=== PATIENT | female | born 1960 | race Caucasian/White ===

== ENCOUNTER 2020-08-21 11:29 | Emergency (ER) | payer MEDICARE, MEDICAID, SELFPAY ==
[2020-08-21 12:00] VITALS: BP 114/69; PULSE 72; RESP 16; TEMP 36.6; O2SAT 96; BMI 38.7
--- NOTE | 2020-08-21 13:24 | XR_ITS ---
EXAMINATION: XR SHOULDER, RIGHT CLINICAL INFORMATION: Right shoulder pain. COMPARISON: Right shoulder radiographs dated 08/14/2019. TECHNIQUE: Two views of the right shoulder. FINDINGS: Rotator cuff anchors are again seen overlying the right humeral head and scapula without significant change. There is no acute fracture dislocation. The joint spaces are unremarkable. The soft tissues are unremarkable. IMPRESSION: Good anatomic alignment with no hardware abnormality. No acute abnormality or significant change.
[2020-08-21] MEDS: oxyCODONE HCl Immed Release 5 MG TABLET PO (13:55)
--- NOTE | 2020-08-21 14:22 | ED.EXTPRO ---
HPI - Extremity Problem General Chief complaint: Extremity Problem Stated complaint: ARM PAIN Time Seen by Provider: 08/21/20 12:36 Source: patient Mode of arrival: ambulatory Limitations: no limitations History of Present Illness HPI Narrative: 60-year-old female with a past medical history of right rotator cuff tear with previous surgery presenting to the ED with complaints of worsening pain to right rotator cuff within the past couple days worse today with worsening limited range of motion. Denies any new injuries, fevers, numbness, tingling, chest pain, shortness of breath, extremity swelling or any other complaints or concerns at this time. Reports she has a follow-up orthopedic appointment next week. Related Data Previous Rx's Medication Instructions Recorded oxycodone 5 mg PO Q8H PRN #14 tab 08/21/20 Allergies Allergy/AdvReac Type Severity Reaction Status Date / Time amoxicillin [From AUGMENTIN] Allergy Intermediate RASH Verified 08/21/20 12:00 clavulanic acid Allergy Intermediate RASH Verified 08/21/20 12:00 [From AUGMENTIN] Review of Systems Review of Systems: Yes all other systems are reviewed and are negative PMFSH Past Medical History Attestation statement: The following information was validated with the patient. Surgical History S/P rotator cuff repair Social History Social History Alcohol intake: never Smoking Status: Current every day smoker Use of substances other than those prescribed or required for medical reasons: No Advance Directives: No Advance Directives Information Provided: Yes Physical Exam Vital Signs: Vital Signs: Vital Signs Temp Pulse Resp BP Pulse Ox 08/21/20 12:00 97.9 F 72 16 114/69 96 Body Mass Index 38.7 Const: General: cooperative, healthy appearing, comfortable, no acute distress, well developed, alert, awake and Physically active Nutritional Appearance: average body habitus and well nourished Orientation/consciousness: patient oriented x3 Limitations: no limitations HENMT: Head: Yes normal to inspection, Yes No palpable skull fracture present, Yes normocephalic and Yes atraumatic Ears: hearing grossly normal bilaterally General nose exam: Normal external nose present Face and sinus: Yes normal facial exam Mouth: moist mucous membranes Eyes: General: appearance normal, both eyes and all related structures Visual Jay: normal visual jay by confrontation Alignment and Position: alignment normal Periorbital: periorbital findings normal Eyelids: Yes eyelids normal Conjunctivae: conjunctivae normal Sclerae: sclerae normal Pupils: Equal, round and reactive pupils present EOM: EOMs intact bilaterally Neck: Neck: Yes normal visual inspection, Yes full ROM, Yes no lymphadenopathy, Yes no meningeal signs, Yes trachea midline and Yes supple Chest: Chest palpation & inspection: normal inspection of the chest Resp: Effort & Inspection: normal respiratory effort and able to speak in complete sentences Auscultation: clear to auscultation bilaterally, no crackles, no rales, no rhonchi and no wheezes Cardio: Rate: regular rate Rhythm: regular rhythm Heart sounds: S1 normal heart sound present and S2 normal heart sound present Peripheral pulses: Peripheral pulses 2+ throughout GI: Inspection: Yes normal to inspection Palpation (GI): Soft to palpation, nontender and No hepatosplenomegaly present Percussion: Yes normal to percussion Auscultation: normal bowel sounds : General: Yes no CVA tenderness Back/Spine/Pelvis: Back: no CVA tenderness Cervical Spine: normal cervical lordosis and cervical ROM normal Thoracic/Lumbar Spine: thoracic and lumbar spine normal to inspection and thoraco-lumbar ROM normal Skin: General skin exam: no rashes or lesions noted, elasticity normal and turgor normal Trauma: no lacerations or abrasions Wounds: no wounds Hair: normal Nails: normal Neuro: General: patient oriented x3 and no meningeal signs Cranial nerves: Yes CN's II-XII intact bilaterally and Yes Equal, round and reactive pupils present Cognition (Neuro): normal cognition Gait exam (Neuro): Normal gait present Motor exam (neuro): 5/5 motor strength present throughout Extrem: General: Yes normal to inspection, Yes full ROM, Yes capillary refill normal, Yes no clubbing, cyanosis or edema, No no pedal edema, No no calf tenderness, Yes normal gait and No edema Right upper extremity: normal to inspection, full ROM, normal capillary refill and shoulder/upper arm Details: normal to inspection, tenderness, axillary nerve sensory function normal and abnormal ROM Details: held in an abnormal fashion Details: in ADduction and in flexion, pain with active ROM Details: in ABduction, in extension, in flexion, in internal rotation and external rotation- and pain with passive ROM; no swelling; no edema Left upper extremity: normal to inspection, full ROM and normal capillary refill; no edema Right lower extremity: normal to inspection, full ROM and normal capillary refill; no edema Left lower extremity: normal to inspection, full ROM and normal capillary refill; no edema Psych: Appearance: grossly normal and well kempt Mental Status: mental status grossly normal Speech and movement: Normal speech and movement present and Clear speech present Affect: normal affect Attitude: cooperative Thought process: Normal thought process present Thought content: Normal thought content present Insight: Good insight present (Psych) Judgement: Good judgement present (Psych) MDM - Extremity (Nontraumatic) Imaging Data r shoulder: Attestation: I personally reviewed and interpreted this imaging study as follows: Radiologist's impression: FINDINGS: Rotator cuff anchors are again seen overlying the right humeral head and scapula without significant change. There is no acute fracture dislocation. The joint spaces are unremarkable. The soft tissues are unremarkable. IMPRESSION: Good anatomic alignment with no hardware abnormality. No acute abnormality or significant change. Discharge Plan Discharge Clinical Impression: Rotator cuff (capsule) sprain Patient Disposition: Home, Self-Care Instructions: Rotator Cuff Injury (ED) Additional Instructions: follow-up with orthopedics next week as scheduled. Prescriptions: New oxycodone 5 mg tablet 5 mg PO Q8H PRN (Reason: pain) Qty: 14 RF: 0 Print Language: Greenlandic
== END 2020-08-21 14:26 | disposition home or self-care (01) ==
PROVIDERS: Emergency Provider Emergency Medicine; PCP Internal Medicine
DX: S43.421A Sprain of right rotator cuff capsule, initial encounter (principal); M79.601 Pain in right arm; X58.XXXA Exposure to other specified factors, initial encounter; Y93.9 Activity, unspecified; Y92.9 Unspecified place or not applicable; Y99.9 Unspecified external cause status; F17.200 Nicotine dependence, unspecified, uncomplicated; Z71.6 Tobacco abuse counseling
CPT/HCPCS: 73030; 99283

== ENCOUNTER 2020-09-15 16:35 | Emergency (ER) | payer MEDICARE, MEDICAID, SELFPAY ==
[2020-09-15 18:27] VITALS: BP 153/82; PULSE 72; RESP 18; TEMP 37; O2SAT 100; BMI 42.0
--- NOTE | 2020-09-15 18:32 | CT_ITS ---
EXAMINATION: CT HEAD WITHOUT CONTRAST CT CERVICAL SPINE WITHOUT CONTRAST CLINICAL INFORMATION: 60-year-old female patient with trauma by falling. COMPARISON: None. TECHNIQUE: Contiguous axial imaging was performed from the skull-base to vertex without intravenous administration of contrast. Multidetector helical imaging was performed through the cervical spine. This CT examination was performed using dose optimization techniques as appropriate, variously including the following: *Automated exposure control *Adjustment of mA and/or kV according to patient size (this includes techniques or standardized protocols for targeted exams where dose is matched to indication/reason for exam; i.e. extremities or head) *Use of iterative reconstruction technique DLP: 531 mGy-cm. FINDINGS: HEAD: There is no evidence of acute intracranial hemorrhage or territorial infarction. No abnormal mass effect or midline shift is seen. Pittman to white matter differentiation is well preserved. No extra-axial fluid collections are identified. The ventricles are normal in size. Brain parenchymal attenuation is normal. The osseous structures and soft tissues are normal. The mastoid air cells and visualized portions of the paranasal sinuses are well aerated. CERVICAL SPINE: No acute fracture or dislocation is identified in the cervical spine. The disc spaces are relatively well maintained. No focal protrusion is noted. The atlantoaxial articulation is normally maintained. The paraspinal soft tissues are normal. The lung apices are clear. CT/CT cervical spine wo con IMPRESSION: 1. No acute intracranial pathology. 2. No evidence of acute cervical spine traumatic injury.
[2020-09-15 18:33] VITALS: BP 153/82; PULSE 72; RESP 18; TEMP 37; O2SAT 100
--- NOTE | 2020-09-15 19:42 | ED.HEATRA ---
HPI - Head Injury General Chief complaint: Fall Stated complaint: fall Time Seen by Provider: 09/15/20 18:32 Source: patient Mode of arrival: ambulatory Limitations: no limitations History of Present Illness HPI Narrative: Patient presents to ED for headache and nausea since falling onto head 4 days ago. Patient states 4 days ago she was outside and she was walking on the pavement and she did not realize the Pavement was uneven which caused her to trip over the higher pavement and she fell and hit her head onto the ground. Patient states he fell face forward. Patient states since then having headache and some nausea. Patient denied having chest pain, shortness of breath, dizziness, headache, or abdominal pain before falling. Patient states she fell. Patient states presently no chest pain or shortness of breath or abdominal pain or dizziness. Patient does states mild headache. Patient denies ever having rectal bleed, bloody urine, or vomiting blood. Patient states she not on any blood thinners. Related Data Previous Rx's Medication Instructions Recorded oxycodone 5 mg PO Q8H PRN #14 tab 08/21/20 naproxen 500 mg PO BID PRN #20 tab 09/15/20 Allergies Allergy/AdvReac Type Severity Reaction Status Date / Time amoxicillin [From AUGMENTIN] Allergy Intermediate RASH Verified 08/21/20 12:00 clavulanic acid Allergy Intermediate RASH Verified 08/21/20 12:00 [From AUGMENTIN] Review of Systems Review of Systems: Yes all other systems are reviewed and are negative Constitutional: Constitutional: Reports as per HPI, Reports no additional constitutional complaints and Reports headache(s) ( Due to fall) Eyes: Eyes: Reports as per HPI and Reports no additional eye complaints ENT: Reports system reviewed and no additional complaints, except as documented, Reports as per HPI and Reports headache(s) ( Due to fall) Cardiovascular: Cardiovascular: Reports as per HPI and Reports no additional cardiovascular complaints Respiratory: Respiratory: Reports as per HPI and Reports no additional respiratory complaints Gastrointestinal: Gastrointestinal: Reports as per HPI and Reports no additional gastrointestinal complaints Musculoskeletal: Musculoskeletal: Reports no additional musculoskeletal complaints and Reports as per HPI Neurologic: Reports system reviewed and no additional complaints, except as documented, Reports as per HPI and Reports headache(s) ( Due to fall) Psychiatric: Psychiatric: Reports no additional psychiatric complaints and Reports as per HPI PMFSH Past Medical History Surgical History S/P rotator cuff repair Social History Social History Alcohol intake: never Smoking Status: Former smoker Smoked in Last 30 Days: No Use of substances other than those prescribed or required for medical reasons: No Advance Directives: No Advance Directives Information Provided: No Physical Exam Vital Signs: Vital Signs: Last Vital Signs Temp 98.6 F 09/15/20 18:33 Pulse 72 09/15/20 18:33 Resp 18 09/15/20 18:33 BP 153/82 H 09/15/20 18:33 Pulse Ox 100 09/15/20 18:33 Body Mass Index 42.0 Const: General: cooperative, healthy appearing, comfortable, no acute distress, well developed, alert and awake Orientation/consciousness: patient oriented x3 HENMT: Head: Yes normal to inspection, Yes No palpable skull fracture present, Yes atraumatic, No Costello's sign, No contusion, No hematoma, No laceration, No occipital foramen tenderness, No palpable skull fracture, No raccoon eyes, No scalp tenderness, No Temporal artery tenderness present and No periorbital ecchymosis Eyes: General: appearance normal, both eyes and all related structures Visual Kaur: normal visual kaur by confrontation Neck: Neck: Yes normal visual inspection, Yes full ROM, Yes no lymphadenopathy, Yes no meningeal signs, Yes trachea midline and No tender Chest: Chest palpation & inspection: normal inspection of the chest, normal palpation of entire chest wall and no localized rib tenderness Resp: Effort & Inspection: normal respiratory effort and able to speak in complete sentences Auscultation: clear to auscultation bilaterally Cardio: Jugular venous distension: no JVD Heart sounds: S1 normal heart sound present and S2 normal heart sound present GI: Inspection: Yes normal to inspection and No abdominal wall ecchymosis Palpation (GI): Soft to palpation, not firm, nontender, no guarding and not rigid : General: No CVA tenderness and Yes no CVA tenderness Back/Spine/Pelvis: Back: no CVA tenderness, No CVA tenderness and No back tenderness Skin: General skin exam: no rashes or lesions noted Trauma: no lacerations or abrasions Neuro: General: patient oriented x3, gait normal, no meningeal signs and CN's II-XI intact bilaterally Cranial nerves: Yes CN's II-XII intact bilaterally Extrem: General: Yes normal to inspection and Yes full ROM Psych: Appearance: grossly normal, well kempt and not disheveled Course Course Course Narrative: history and physical exam indicate concussion like syndrome. Due to patient stating headache and slight nausea patient will have imaging to rule out any bleed or fracture from the fall. Presently no labs indicated. History indicates mechanical fall. Reevaluation(s) Reevaluation #1: Head CTs and C-spine came back normal. Patient is texting on her phone and laughing. Patient is safe for discharge. negative for any neuro deficits. Time: 19:46 MDM - Head Injury MDM Narrative Medical decision making narrative: Mechanical fall. Concussion Discharge Plan Discharge Clinical Impression: Concussion without loss of consciousness, Closed head injury Patient Disposition: Home, Self-Care Instructions: Concussion (ED) Additional Instructions: return to the ED immediately for worsening headache, chest pain, shortness of breath, dizziness, slurred speech, loss of vision, paralysis of extremities, or any other concerning symptoms. Prescriptions: New naproxen 500 mg tablet 500 mg PO BID PRN (Reason: pain) Qty: 20 RF: 0 No Action oxycodone 5 mg tablet 5 mg PO Q8H PRN (Reason: pain) Qty: 14 RF: 0 Referrals: Cassie Jin DO [Primary Care Provider] - 2 days ( Concussion due to mechanical fall. Head CT C-spine normal) Interventions: ED Discharge Assessment Last Done: 09/15/20 19:56 Discharge Date/Time: 09/15/20 19:57 Print Language: Bulgarian
== END 2020-09-15 19:57 | disposition home or self-care (01) ==
PROVIDERS: Emergency Provider Emergency Medicine; PCP Internal Medicine
DX: S06.0X0A Concussion without loss of consciousness, initial encounter (principal); G44.309 Post-traumatic headache, unspecified, not intractable; M54.2 Cervicalgia; W19.XXXA Unspecified fall, initial encounter; Y93.9 Activity, unspecified; Y92.9 Unspecified place or not applicable; Y99.9 Unspecified external cause status; Z87.891 Personal history of nicotine dependence; Z79.899 Other long term (current) drug therapy
CPT/HCPCS: 70450; 72125; 99284

== ENCOUNTER 2022-01-31 16:00 | Outpatient (RCR) | payer MEDICARE, MEDICAID, SELFPAY | END 2022-03-15 11:56 | disposition home or self-care (01) | LOC: HO.PT 16:00 | PROVIDERS: PCP Internal Medicine; Visit Provider Orthopaedic Surgery | DX: Z96.611 Presence of right artificial shoulder joint (principal) | CPT/HCPCS: 97110; 97140; 97162 ==

== ENCOUNTER 2022-02-05 21:50 | Day surgery (SDC) | payer MEDICARE, MEDICAID, SELFPAY ==
--- NOTE | ~2022-02-05 | XR_ITS ---
EXAMINATION: XR SHOULDER, RIGHT CLINICAL INFORMATION: Post reduction COMPARISON: None TECHNIQUE: Three views of the right shoulder. XR/XR shoulder RT min 2V FINDINGS/IMPRESSION: Anterior dislocation of the humeral prosthetic component with respect to the glenoid prosthesis. No fractures.
--- NOTE | ~2022-02-05 | XR_ITS ---
EXAMINATION: XR SHOULDER, RIGHT CLINICAL INFORMATION: Replacement COMPARISON: None TECHNIQUE: Three views of the right shoulder. FINDINGS: Findings suggest anterior dislocation or subluxation. No underlying bony fracture or hardware failure. XR/XR shoulder RT min 2V IMPRESSION: Findings suggest anterior subluxation or dislocation.
--- NOTE | ~2022-02-05 | FL_ITS ---
EXAMINATION: XR FLUOROSCOPY WITH IMAGES CLINICAL INFORMATION: Postreduction right shoulder. COMPARISON: Right shoulder 02/06/2022. TECHNIQUE: Fluoroscopy performed by Dr. Rodriguez . Fluoroscopy time: 0.0 minutes DAP: 0.48614 mGycm2 Images: 1 FINDINGS: Status post reduction there is normal alignment of the right shoulder prosthesis. No visible fracture seen. The soft tissues are normal. FL/FL guidance in OR IMPRESSION: Normal right shoulder alignment status post reduction.
[2022-02-05 22:10] VITALS: BP 107/79; PULSE 74; RESP 15; TEMP 36.3; O2SAT 96; BMI 35.9
--- NOTE | 2022-02-05 22:49 | ECG_ITS ---
Test Reason : SX Blood Pressure : / mmHG Vent. Rate : 065 BPM Atrial Rate : 065 BPM P-R Int : 152 ms QRS Dur : 098 ms QT Int : 432 ms P-R-T Axes : 039 005 039 degrees QTc Int : 449 ms Normal sinus rhythm Normal ECG No significant changes when compared with the previous EKG of 05 aug 2004. Referred By: Ashlee Aleman Electronically Signed By:PALOMA ALEJANDRO
--- NOTE | 2022-02-05 22:54 | PC.NURSE ---
right shoulder pain.
[2022-02-06] VITALS (9 sets, daily range): BP systolic 128–164; BP diastolic 53–86; PULSE 60–67; RESP 15–16; TEMP 36.6–37.2; O2SAT 93–100
--- NOTE | 2022-02-06 00:07 | PC.NURSE ---
PT HAS RIGHT SHOULDER DISLOCATION. EKG NOT NEEDED PER DR RAMÍREZ.
--- NOTE | 2022-02-06 00:31 | ED_ITS ---
HPI - Extremity Problem General Chief complaint: Extremity Injury, Upper Stated complaint: Kai-horse shoulder pain, shoulder replacement Time Seen by Provider: 02/05/22 22:49 Source: patient Mode of arrival: ambulatory History of Present Illness HPI Narrative: 61-year-old female with longstanding right shoulder difficulties that have involved multiple surgeries presents with feeling as though she has a charley horse in the right shoulder and has been ongoing for approximately 1 week. Patient states that she was recently started on the use of weights and isometric bands at her physical therapy appointments. She denies any numbn ess/tingling/weakness into the distal extremity and has continued with her activities of daily living. Otherwise, she denies any fever, chills, shortness of breath. Related Data Previous Rx's Medication Instructions Recorded oxycodone 5 mg tablet 5 mg PO Q8H PRN #14 tab 08/21/20 naproxen 500 mg tablet 500 mg PO BID PRN #20 tab 09/15/20 Allergies Allergy/AdvReac Type Severity Reaction Status Date / Time amoxicillin [From AUGMENTIN] Allergy Intermediate RASH Verified 01/28/21 12:43 clavulanic acid Allergy Intermediate RASH Verified 01/28/21 12:43 [From AUGMENTIN] Review of Systems Review of Systems: Pertinent positives and negatives as stated in HPI 10 point review of systems is otherwise negative. PMFSH Past Medical History Source: nursing notes reviewed Surgical History S/P rotator cuff repair Social History Social History Alcohol intake: never Advance Directives: No Patient : No Physical Exam Vital Signs: Vital Signs: Last Vital Signs Temp 97.3 F 02/05/22 22:10 Pulse 74 02/05/22 22:10 Resp 15 02/05/22 22:10 BP 107/79 02/05/22 22:10 Pulse Ox 96 02/05/22 22:10 BMI result Body Mass Index 35.9 VITAL SIGNS: Reviewed. GENERAL: Well developed, well nourished, in no acute distress. HEAD: Normocephalic/atraumatic EYES: PERRLA, EOMI OROPHARYNX: no oral lesions noted, posterior pharynx clear LUNGS: Normal breath sounds. No adventitious sounds or accessory muscle use. SpO2<96> CARDIOVASCULAR: Regular rate and rhythm without noted murmurs, no JVD or lower extremity edema. ABDOMEN: Soft, non-tender, non-distended with bowel sounds. MUSCULOSKELETAL: tenderness on palpation over right shoulder and noted deformity, no erythema or induration and palpable radial/ulnar pulses with warm hand and good capillary refill with sensation intact. EXTREMITIES: No cyanosis, clubbing or edema. SKIN: Inspection of the skin reveals no rashes NEUROLOGIC: Alert and oriented x 4. Strength and sensation to light touch were grossly intact x 4. Course Course Course Narrative: 61-year-old female with history and clinical presentation after review of imagi ng studies consistent with anterior dislocation. Patient underwent reduction of right shoulder without noted complications and tolerated the procedure well. On review of repeat x-rays, the dislocation is still present, patient is neurovascularly intact in her pain is under well control. I discussed this case with the orthopedic service given the difficult reduction and on evaluation for feasibility of procedural sedation this would place an unwarranted strain on current staffing. Orthopedics was generous enough to take patient to the OR in the morning for reduction. Results, findings, and plan were discussed with patient at bedside and she acknowledges understanding. Reevaluation(s) Reevaluation #1: Patient placed in physician observation because the patient needed more time for intra op shoulder reduction right shoulder prosthetic by the orthopedic service. At the time observation was started the patient's vital signs were stable, patient is alert and oriented, neuro: Nonfocal, CV RRR, lungs clear Time: 01:52 Procedures Orthopedic Joint Reduction Joint #1: Time Out Performed: No Side: right Joint Reduction Location: shoulder Analgesia: none Shoulder Technique Used (if applicable): traction/counter-traction and external rotation Technique used: direct manipulation Post-reduction neuro exam: intact Post-reduction vascular: intact Post Reduction X-Ray Obtained: Yes Post Reduction X-Ray Results: not reduced Splint Applied: Yes Patient Tolerated Procedure: well Additional Comments: Discussed case with Orthopedics. Discharge Plan Discharge Clinical Impression: Dislocation of right shoulder joint Patient Disposition: Still a Patient Prescriptions: No Action naproxen 500 mg tablet 500 mg PO BID PRN (Reason: pain) Qty: 20 0RF oxycodone 5 mg tablet 5 mg PO Q8H PRN (Reason: pain) Qty: 14 0RF
--- NOTE | 2022-02-06 01:00 | PC.NURSE ---
REPORT GIVEN AND CARE TRANSFERRED TO MANOJ PLASCENCIA
--- NOTE | 2022-02-06 01:31 | PC.NURSE ---
pt made aware that she needs to be npo for am surgery.
[2022-02-06 04:26] LABS: COVID-19 Test Negative (Negative)
--- NOTE | 2022-02-06 06:46 | PC.NURSE ---
pt has been npo thur the night, ambulated to the bed with no difficulty.
[2022-02-06] MEDS: oxyCODONE HCl Immed Release 5 MG TABLET PO (09:13)
--- NOTE | 2022-02-06 09:51 | PHA.MEDREC ---
med rec complete, no issues Pharmacy Consult ? Medication Reconciliation Pharmacy has completed the medication reconciliation.
--- NOTE | 2022-02-06 11:23 | P.BOP_ITS ---
Brief Operative Note Date of Service: 02/06/22 Pre-op diagnosis: dislocated right shoulder replacement Post-op diagnosis: same Procedure: closed reduction right shoulder Surgeon: Clive Rodriguez MD Anesthesia: GETA Was an Microwave Engineer used for this Procedure?: No Estimated blood loss (mL): 0 IV fluids (mL): 0 Pathology: none sent Condition: stable Disposition: PACU
--- NOTE | 2022-02-06 12:35 | PC.NURSE ---
PATIENT RECEIVED 50 ML IV FLUID. PATIENT DRANK 200 ML FLUID WHILE IN RECOVERY.
--- NOTE | 2022-02-06 12:52 | PC.NURSE ---
THIS RN WAS UNABLE TO PUT A DISCHARGE TIME IN THE COMPUTER. PATIENT WAS FROM ED AND DISCHARGED FROM PACU. PT DISCHARGED AT 1240. PT BROUGHT TO HER VEHICLE VIA WHEELCHAIR. SLING IN PLACE.
--- NOTE | 2022-02-07 15:05 | HO.POSTANES ---
Post Anesthesia Evaluation Post Anesthesia Evaluation Anesthesia: Monitored Mental Status: Awake Pain Control: Satisfactory Nausea/Vomiting: None Hydration: Adequate Anesthesia-Related Issues: No Anes. Related Issues
--- NOTE | 2022-02-15 11:12 | W.PM.OPN ---
Operative Note Operative Note Date of Service: 02/15/22 Narrative: Date of Service: 02/06/22 Pre-op diagnosis: dislocated right shoulder replacement Post-op diagnosis: same Procedure: closed reduction right shoulder Surgeon: Clive Rodriguez MD Anesthesia: GETA Was an Lunchroom Mother used for this Procedure?: No Estimated blood loss (mL): 0 IV fluids (mL): 0 Pathology: none sent Condition: stable Disposition: PACU Procedure in detail: patient was brought to the operative room placed supine on the operative table. A time-out was called to identify proper site proper procedure and proper surgeon. Of once propofol was administered I applied gentle axial traction to the right shoulder and at reduced easily. Took shoulder range of motion and it appeared stable. Radiographs confirmed reduction. Patient was awakened and brought to recovery room stable condition. There were no known complications.
== END 2022-02-06 12:40 | disposition home or self-care (01) ==
LOC: HO.ED 02-06 11:54 → HO.SSS 02-07 08:02
PROVIDERS: Emergency Provider Student in an Organized Health Care Education/Training Program; Visit Provider Orthopaedic Surgery
PROC: (CPT 23650; principal; 2022-02-06 12:00)
DX: T84.028A Dislocation of other internal joint prosthesis, initial encounter (principal); T84.84XA Pain due to internal orthopedic prosthetic devices, implants and grafts, initial encounter; M25.511 Pain in right shoulder; Y79.2 Prosthetic and other implants, materials and accessory orthopedic devices associated with adverse incidents; Y92.9 Unspecified place or not applicable; Z96.611 Presence of right artificial shoulder joint; Z88.0 Allergy status to penicillin; Z88.1 Allergy status to other antibiotic agents; Z20.822 Contact with and (suspected) exposure to COVID-19
CPT/HCPCS: 23650; 73030; 87635; 93005; 99285; J1100

== ENCOUNTER 2022-09-04 08:20 | Emergency (ER) | payer MEDICARE, MEDICAID, SELFPAY ==
--- NOTE | ~2022-09-04 | CT_ITS ---
EXAMINATION: CT ANGIOGRAM OF THE CHEST WITH CONTRAST (CT PULMONARY ANGIOGRAM FOR PE) CLINICAL INFORMATION: Reason for Exam chest pain, elevated dimer, ?PE COMPARISON: CXR from 09/04/2022 TECHNIQUE: Prior to contrast administration, noncontrast localization images were obtained. Subsequently, multidetector volumetric imaging was performed from the thoracic inlet to below the diaphragms following the administration of 70 mL Omnipaque 350 intravenous contrast. No contrast reaction reported. Sagittal, coronal, and MIP oblique sagittal reformatted images were obtained on the CT workstation, uploaded to PACS, and reviewed. This CT examination was performed using dose optimization techniques as appropriate, variously including the following: *Automated exposure control *Adjustment of mA and/or kV according to patient size (this includes techniques or standardized protocols for targeted exams where dose is matched to indication/reason for exam; i.e. extremities or head) *Use of iterative reconstruction technique DLP: Total exam dose-length product 477 mGy-cm FINDINGS: LUNGS AND PLEURA: Trachea and central airways are widely patent and normal in caliber. Mild centrilobular and paraseptal emphysema. No pulmonary edema, pleural effusion or pneumothorax. A small solid nodule of 0.5 cm average diameter is present in the anterior segment of the right upper lobe. Based on Fleischner Society guidelines for incidentally detected nodules of this size, chest CT follow-up is not routinely recommended in a low-risk patient and is considered optional at 12 months in a high risk patient. QUALITY OF STUDY/CONTRAST BOLUS: Satisfactory. CARDIOVASCULAR: Pulmonary arteries are normal in caliber. No embolic filling defects in the main, lobar or segmental vessels. The heart size is normal. Mitral valve annulus is calcified. Minimal atherosclerotic calcification of the thoracic aorta without aneurysm or dissection. No pericardial effusion. MEDIASTINUM/LOWER NECK: No mediastinal mass. The esophagus and thyroid gland are unremarkable. LYMPHATICS: No pathologic sized axillary, hilar or mediastinal lymph nodes. UPPER ABDOMEN: No reflux of contrast into the IVC. Liver parenchyma has attenuation of approximately 35 Hounsfield units on these contrast-enhanced images. This suggests presence of diffuse steatosis. OSSEOUS STRUCTURES: Multilevel degenerative disc disease of the mid to lower thoracic spine. No suspicious bone lesions. Normal alignment at the partially visualized right reverse shoulder arthroplasty. CT/CT angio chest PE protocol IMPRESSION: * No evidence of pulmonary embolism. * Mild pulmonary emphysema. * Diffuse hepatic steatosis. * Incidentally noted is a small nodule in the anterior right upper lobe. Chest CT follow-up is not required in a low-risk patient and may be considered optional at 12 months in a high risk patient.
--- NOTE | ~2022-09-04 | XR_ITS ---
EXAMINATION: XR CHEST CLINICAL INFORMATION: Chest pain COMPARISON: 08/14/2019 TECHNIQUE: 2 views of the chest were obtained. FINDINGS: Lungs are well expanded and clear. No evidence of pulmonary edema, pleural effusion or pneumothorax. Cardiac silhouette has normal size and contour. The visualized bones are intact. Alignment is normal at the partially visualized reverse right shoulder arthroplasty. Mild and moderate multilevel discovertebral degenerative changes of the thoracic spine. XR/XR chest 2V IMPRESSION: No acute cardiopulmonary disease.
--- NOTE | 2022-09-04 08:23 | ECG_ITS ---
Test Reason : CHEST PAIN Blood Pressure : / mmHG Vent. Rate : 075 BPM Atrial Rate : 075 BPM P-R Int : 134 ms QRS Dur : 100 ms QT Int : 386 ms P-R-T Axes : 039 003 016 degrees QTc Int : 431 ms Normal sinus rhythm Normal ECG When compared with ECG of 06-FEB-2022 07:52, No significant changes seen Referred By: Generic ED Physician Electronically Signed By:NAYA CUELLAR MD
[2022-09-04 08:24] VITALS: BP 128/72; PULSE 86; O2SAT 96
[2022-09-04 08:32] VITALS: BP 127/61; PULSE 80; RESP 16; TEMP 36.6; O2SAT 94; BMI 40.7
[2022-09-04 08:39] VITALS: BP 127/61; PULSE 80; RESP 16; TEMP 36.7; O2SAT 94
--- NOTE | 2022-09-04 09:03 | ED_ITS ---
HPI - Chest Pain General Chief Complaint: General Medical Stated Complaint: chest pain Time Seen by Provider: 09/04/22 08:36 Source: patient Mode of arrival: EMS Limitations: no limitations History of Present Illness HPI narrative: Patient is a 62-year-old female who presents emergency department for evaluation of chest pain via EMS. 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 At first, she thought this may be related to her acid reflux, typically she is able to walk around a little bit, belt, and her pain subsides. However this was not the case. She reports that the pain persisted for 30 minutes and was constant, she felt it radiating into her throat. After 30 minutes the pain began to self resolve, currently she describes as a tenderness to the substernal region. Denies associated fevers, chills, dizziness, lightheadedness, headache, shortness of breath, difficulty breathing, recent URI symptoms, cough, nausea, vomiting, abdominal pain, numbness or tingling of the extremities, weakness. Denies any recreational drug usage, reports occasional glass of red wine, denies past history of DVT/PE, personal history of cancer. She is a cigarette smoker, smoking 3/4 pack per day. Related Data Home Medications Medication Instructions Recorded Confirmed benztropine 1 mg tablet 1 mg PO DAILY 02/06/22 02/06/22 lorazepam 0.5 mg tablet 0.5 mg PO TID PRN Anxiety 02/06/22 02/06/22 omeprazole 20 mg capsule,delayed 20 mg PO DAILY 02/06/22 02/06/22 release sertraline 50 mg tablet 75 mg PO DAILY 02/06/22 02/06/22 simvastatin 20 mg tablet 20 mg PO BEDTIME 02/06/22 02/06/22 thiothixene 5 mg capsule 5 mg PO DAILY 02/06/22 02/06/22 trazodone 50 mg tablet 50 mg PO BEDTIME PRN Sleep 02/06/22 02/06/22 Previous Rx's Medication Instructions Recorded cefuroxime axetil 250 mg tablet 250 mg PO Q12H #14 tabs 09/04/22 Allergies Allergy/AdvReac Type Severity Reaction Status Date / Time amoxicillin [From AUGMENTIN] Allergy Intermediate RASH Verified 01/28/21 12:43 clavulanic acid Allergy Intermediate RASH Verified 01/28/21 12:43 [From AUGMENTIN] Review of Systems Review of Systems: Constitutional : No Weight loss, No Fever, No Chills ENT/Mouth :? No sore throat, No Rhinorrhea Eyes: No Eye Pain, No Swelling Cardiovascular : pos Chest Pain, no SOB, no Dyspnea on Exertion, No Orthopnea, No Edema, No Palpitations Respiratory : No Cough, No Sputum Gastrointestinal : No Nausea, No Vomiting, No Diarrhea, No abdominal Pain, No Hematochezia, No Melena Genitourinary : No Dysuria, No Urinary Frequency Musculoskeletal : No joint pain, No Myalgias, No Joint Swelling Skin : No Skin Lesions, No rash Neuro : No Weakness, No Numbness, No Dizziness, No Headache Psych : No Anxiety/Panic, No Depression Heme/Lymph: No Bruising, No Lymphadenopathy Endocrine : No Polyuria, No Polydipsia Yes all other systems are reviewed and are negative [facility] Past Medical History Attestation statement: The following information was validated with the patient. Source: old records reviewed Surgical History S/P rotator cuff repair Social History Social History Alcohol intake: never Patient Tobacco Use Status: Current everyday Tobacco user Smoked in Last 30 Days: Yes Advance Directives: No Advance Directives Information Provided: Yes Physical Exam Vital Signs: Vital Signs: Last Vital Signs Temp 98.0 F 09/04/22 08:39 Pulse 79 09/04/22 11:44 Resp 22 H 09/04/22 11:44 BP 124/62 09/04/22 11:44 Pulse Ox 97 09/04/22 11:44 O2 Del Method 09/04/22 11:44 BMI result Body Mass Index 40.7 Vital signs have been reviewed as normal and appeared to be correct. Blood pressure normal.? Heart rate normal.? Respiration rate normal. Temperature normal.? Oxygen saturation normal. Appearance: Alert.?Oriented to person, place and time. No acute dis tress.?Normal affect. Eyes: Pupils equal, round and reactive to light.? ENT: Pharynx normal.?? Neck: Normal inspection.? Neck supple.?? CVS: Heart sounds normal. Normal heart rate and rhythm.? Pulses normal.?? Respiratory: No respiratory distress.? Lung sounds clear to auscultation bilaterally?? Abdomen: Soft and non-tender. Normoactive bowel sounds. Skin: Skin warm and dry.? Normal skin color.? Extremities: No lower extremity edema.? No calf ttp? Neuro: Moves all extremities spontaneously. Sensation intact bilaterally. CN II- XII intact. No focal neuro deficits. Ambulates with normal steady gait. Course Course Course Narrative: Patient is a 62-year-old female with past medical history of GERD, hype rlipidemia, depression who presents emergency department for evaluation of chest pain. Chest pain non reproducible. Physical exam is overall unremarkable. She is well-appearing. Vital signs are stable. Afebrile, no tachycardia, no tachypnea, room air O2 saturation around 94%, patient is unclear whether this is baseline for her. However, she is denying any shortness breath. Patient received aspirin 324 mg p.o. from EMS prior to arrival to hospital. Will obtain CBC to evaluate for leukocytosis/ anemia, CMP and lipase to evaluate for abnormal electrolytes /abnormal renal function/ abnormal hepatic/biliary function, EKG and troponin to evaluate for ischemia/ACS. Chest x-ray to evaluate for consolidation/ infiltrate/ mass/ pulmonary congestion and Urinalysis. Risk factor for pulmonary embolism including smoking history, will obtain D-dimer. Reevaluation(s) Reevaluation #1: Troponin 3.9, EKG reveals normal sinus rhythm, no acute ischemic findings, plan onset of symptoms will obtain delta troponin. CBC reveals a normocytic anemia, mild leukocytosis of 12.5, no infectious process suspected at this time, may be reactive, inflammatory process. CMP is overall unremarkable.. D-dimer is elevated at 330, will obtain CT angio of the chest to exclude pulmonary embolism. Chest x-ray reveals no acute cardiopulmonary process Time: 10:29 Reevaluation #2: CT reveals no evidence of pulmonary embolism, there is mild pulmonary emphysema and hepatic steatosis. Incidental finding of small nodule to the right upper lobe, outpatient follow-up CT recommended. Urinalysis reveals trace hematuria, positive nitrates, pyuria and bacteria, concern for urinary tract infection, at this time she does endorse some intermittent urinary frequency, has urge incontinence for which she wears a sanitary pad, discussed plan of care for discharge with new prescription for cefuroxime, culture pending. Delta troponin is negative. Chest pain, atypical, may be secondary to acid reflux. At this time, patient is stable for discharge home, discussed worrisome signs and symptoms that she should return back to the emergency department for, advised outpatient follow-up with primary care provider within 2 days. All questions were answered, patient discharged home in stable condition. Time: 12:36 [facility] - Chest Pain Medical Records Data Attestation: I reviewed the patient's medical records. Lab Data Attestation: I reviewed the patient's lab results. Result diagrams: 09/04/22 08:58 09/04/22 08:58 Labs: Lab Results 09/04/22 09/04/22 09/04/22 Range/Units 08:58 08:58 08:58 WBC 12.5 H (4.8-10.8) X10*3/uL RBC 3.92 L (4.20-5.50) X10*6/uL Hgb 11.6 L (12.0-16.0) g/dl Hct 36.2 L (37.0-47.0) % MCV 92.3 (80.0-98.0) fL MCH 29.6 (27.0-33.0) pg MCHC 32.0 (31.0-35.0) g/dl RDW 13.3 (11.0-16.0) % Plt Count 253 (160-400) X10*3/uL MPV 9.7 (9.4-12.3) fL Immature Gran % (Auto) 0.6 H (0.0-0.4) % Neut % (Auto) 80.5 H (45-73) % Lymph % (Auto) 7.8 L (20-40) % [place] % (Auto) 10.4 (2-11) % Eos % (Auto) 0.5 (0-4) % Baso % (Auto) 0.2 (0-2) % Lymph # (Auto) 1.0 L (1.2-4.9) X10*3/uL [place] # (Auto) 1.3 H (0.1-1.2) X10*3/uL Eos # (Auto) 0.1 (0.0-0.4) X10*3/uL Baso # (Auto) 0.0 (0.0-0.2) X10*3/uL Abs Immat Gran (auto) 0.07 H (0.00-0.03) X10*3/uL Absolute Neuts (auto) 10.0 H (2.0-8.3) x10*3/uL Absolute Nucleated RBC 0.000 (0.0-0.012) X10*3/uL Nucleated RBC % (auto) 0.0 (0.0-0.2) /100WBC D-Dimer High Sensitivty NG/ML Sodium 139 (135-145) mmol/L Potassium 4.4 (3.3-5.1) mmol/L Chloride 100 (96-108) mmol/L Carbon Dioxide 26 (22-29) mmol/L Anion Gap 17 (12-20) BUN 18 H (9-16) mg/dL Creatinine 0.68 (0.5-1.4) mg/dL Estim Creat Clear Calc 105.1 Estimated GFR > 60 Random Glucose 146 H (60-115) mg/dL Calcium 9.3 (8.4-10.2) mg/dL Magnesium 1.9 (1.6-2.6) mg/dL Total Bilirubin 0.3 (0.0-1.0) mg/dL AST 20 (5-31) U/L ALT 33 H (0-31) U/L Alkaline Phosphatase 168 H (39-117) U/L Troponin I High Sens 3.9 (<3.5-17.0) ng/L Total Protein 7.0 (6.5-8.0) g/dL Albumin 3.9 (3.5-5.0) g/dL Lipase 13 (8-78) U/L Urine Color Urine Appearance Urine pH (5.0-9.0) Ur Specific [place] (1.005-1.025) Urine Protein (Neg-Trace) mg/dL Urine Glucose (UA) (Negative) mg/dL Urine Ketones (Negative) mg/dL Urine Blood (Negative) Urine Nitrite (Negative) Ur Leukocyte Esterase (Negative) Urine RBC (0-2) /HPF Urine WBC (0-5) /HPF Ur Squamous Epith Cells (0-2) /HPF Urine Bacteria (None Seen) Hyaline Casts (0-2) /LPF COVID-19 (WERNER) (Negative) COVID-19 Clin Com Influenza Type A (TREVER) (Negative) Influenza Type B (TREVER) (Negative) Influenza A & B Note 09/04/22 09/04/22 09/04/22 Range/Units 08:58 08:58 08:58 WBC (4.8-10.8) X10*3/uL RBC (4.20-5.50) X10*6/uL Hgb (12.0-16.0) g/dl Hct (37.0-47.0) % MCV (80.0-98.0) fL MCH (27.0-33.0) pg MCHC (31.0-35.0) g/dl RDW (11.0-16.0) % Plt Count (160-400) X10*3/uL MPV (9.4-12.3) fL Immature Gran % (Auto) (0.0-0.4) % Neut % (Auto) (45-73) % Lymph % (Auto) (20-40) % [place] % (Auto) (2-11) % Eos % (Auto) (0-4) % Baso % (Auto) (0-2) % Lymph # (Auto) (1.2-4.9) X10*3/uL [place] # (Auto) (0.1-1.2) X10*3/uL Eos # (Auto) (0.0-0.4) X10*3/uL Baso # (Auto) (0.0-0.2) X10*3/uL Abs Immat Gran (auto) (0.00-0.03) X10*3/uL Absolute Neuts (auto) (2.0-8.3) x10*3/uL Absolute Nucleated RBC (0.0-0.012) X10*3/uL Nucleated RBC % (auto) (0.0-0.2) /100WBC D-Dimer High Sensitivty 330 NG/ML Sodium (135-145) mmol/L Potassium (3.3-5.1) mmol/L Chloride (96-108) mmol/L Carbon Dioxide (22-29) mmol/L Anion Gap (12-20) BUN (9-16) mg/dL Creatinine (0.5-1.4) mg/dL Estim Creat Clear Calc Estimated GFR Random Glucose (60-115) mg/dL Calcium (8.4-10.2) mg/dL Magnesium (1.6-2.6) mg/dL Total Bilirubin (0.0-1.0) mg/dL AST (5-31) U/L ALT (0-31) U/L Alkaline Phosphatase (39-117) U/L Troponin I High Sens (<3.5-17.0) ng/L Total Protein (6.5-8.0) g/dL Albumin (3.5-5.0) g/dL Lipase (8-78) U/L Urine Color Urine Appearance Urine pH (5.0-9.0) Ur Specific [place] (1.005-1.025) Urine Protein (Neg-Trace) mg/dL Urine Glucose (UA) (Negative) mg/dL Urine Ketones (Negative) mg/dL Urine Blood (Negative) Urine Nitrite (Negative) Ur Leukocyte Esterase (Negative) Urine RBC (0-2) /HPF Urine WBC (0-5) /HPF Ur Squamous Epith Cells (0-2) /HPF Urine Bacteria (None Seen) Hyaline Casts (0-2) /LPF COVID-19 (WERNER) Negative (Negative) COVID-19 Clin Com See Note Influenza Type A (TREVER) Negative (Negative) Influenza Type B (TREVER) Negative (Negative) Influenza A & B Note See Note 09/04/22 09/04/22 Range/Units 11:46 11:57 WBC (4.8-10.8) X10*3/uL RBC (4.20-5.50) X10*6/uL Hgb (12.0-16.0) g/dl Hct (37.0-47.0) % MCV (80.0-98.0) fL MCH (27.0-33.0) pg MCHC (31.0-35.0) g/dl RDW (11.0-16.0) % Plt Count (160-400) X10*3/uL MPV (9.4-12.3) fL Immature Gran % (Auto) (0.0-0.4) % Neut % (Auto) (45-73) % Lymph % (Auto) (20-40) % [place] % (Auto) (2-11) % Eos % (Auto) (0-4) % Baso % (Auto) (0-2) % Lymph # (Auto) (1.2-4.9) X10*3/uL [place] # (Auto) (0.1-1.2) X10*3/uL Eos # (Auto) (0.0-0.4) X10*3/uL Baso # (Auto) (0.0-0.2) X10*3/uL Abs Immat Gran (auto) (0.00-0.03) X10*3/uL Absolute Neuts (auto) (2.0-8.3) x10*3/uL Absolute Nucleated RBC (0.0-0.012) X10*3/uL Nucleated RBC % (auto) (0.0-0.2) /100WBC D-Dimer High Sensitivty NG/ML Sodium (135-145) mmol/L Potassium (3.3-5.1) mmol/L Chloride (96-108) mmol/L Carbon Dioxide (22-29) mmol/L Anion Gap (12-20) BUN (9-16) mg/dL Creatinine (0.5-1.4) mg/dL Estim Creat Clear Calc Estimated GFR Random Glucose (60-115) mg/dL Calcium (8.4-10.2) mg/dL Magnesium (1.6-2.6) mg/dL Total Bilirubin (0.0-1.0) mg/dL AST (5-31) U/L ALT (0-31) U/L Alkaline Phosphatase (39-117) U/L Troponin I High Sens 4.1 (<3.5-17.0) ng/L Total Protein (6.5-8.0) g/dL Albumin (3.5-5.0) g/dL Lipase (8-78) U/L Urine Color Yellow Urine Appearance Clear Urine pH 6.0 (5.0-9.0) Ur Specific [place] 1.020 (1.005-1.025) Urine Protein Trace (Neg-Trace) mg/dL Urine Glucose (UA) Negative (Negative) mg/dL Urine Ketones Negative (Negative) mg/dL Urine Blood Trace H (Negative) Urine Nitrite Positive H (Negative) Ur Leukocyte Esterase Small (1+) H (Negative) Urine RBC 6-10 H (0-2) /HPF Urine WBC 11-20 H (0-5) /HPF Ur Squamous Epith Cells 0-2 (0-2) /HPF Urine Bacteria 2+ (None Seen) Hyaline Casts 0-2 (0-2) /LPF COVID-19 (WERNER) (Negative) COVID-19 Clin Com Influenza Type A (TREVER) (Negative) Influenza Type B (TREVER) (Negative) Influenza A & B Note Imaging Data Chest x-ray: Radiologist's impression: XR/XR chest 2V IMPRESSION: No acute cardiopulmonary disease. CT scan - chest: Radiologist's impression: CT/CT angio chest PE protocol IMPRESSION: *? No evidence of pulmonary embolism. *? Mild pulmonary emphysema. *? Diffuse hepatic steatosis. *? Incidentally noted is a small nodule in the anterior right upper lobe. Chest CT follow-up is not required in a low-risk patient and may be considered optional at 12 months in a high risk patient. ECG Data ECG #1: Attestation: I personally reviewed and interpreted this ECG as follows: ECG interpretation date: 09/04/22 Prior ECG tracings: available for review Interpretation: Rate: 75 Rhythm:? Normal sinus rhythm Treichlers:? Normal Normal P waves.? Normal SHANA.?? Normal QRS complex.?? ST T wave :??No ST elevation, no ST depression, no T-wave inversion qTC: 431 prior studies: February 2022? The study has been interpreted contemporaneously by me. Discharge Plan Discharge Clinical Impression: Chest pain, Urinary tract infection, Incidental pulmonary nodule Patient Disposition: Home, Self-Care Instructions: Pulmonary Nodules (ED), Urinary Tract Infection in Older Adults (ED), Chest Pain (ED) Additional Instructions: Your chest x-ray was normal. The CT of your chest does not reveal any evidence of a blood clot. However, there was an incidental finding of a small nodule in anterior right upper lobe, please make your primary care provider aware of this, as they may consider outpatient follow-up CT scan. You were found to have a urinary tract infection today, new prescription for antibiotic was sent to your pharmacy, please complete this entire course. You should return to emergency department any new or worsening symptoms or concerns. This might include but is not limited to dizziness, lightheadedness, headache, vision changes, neck pain, chest pain, palpitations, shortness of br eath, difficulty breathing, nausea, vomiting, abdominal pain, back pain, pain with urination, urinary frequency. Contact your primary care provider and arrange for a follow-up visit within 2 days. Prescriptions: New cefuroxime axetil 250 mg tablet 250 mg PO Q12H Qty: 14 0RF No Action lorazepam 0.5 mg Tablet 0.5 mg PO TID PRN (Reason: Anxiety) simvastatin 20 mg Tablet 20 mg PO BEDTIME benztropine 1 mg Tablet 1 mg PO DAILY trazodone 50 mg Tablet 50 mg PO BEDTIME PRN (Reason: Sleep) thiothixene 5 mg Capsule 5 mg PO DAILY omeprazole 20 mg Capsule,Delayed Release(Dr/Ec) 20 mg PO DAILY sertraline 50 mg Tablet 75 mg PO DAILY Interventions: ED Discharge Assessment Last Done: 09/04/22 13:27 Discharge Date/Time: 09/04/22 13:28
[2022-09-04 09:05] LABS: MANUAL DIFF FLAG NO
[2022-09-04 09:06] LABS: Basophils Percent Auto 0.2 % (0-2); Eosinophils Absolute Auto 0.1 X10*3/uL (0.0-0.4); Eosinophils Percent Auto 0.5 % (0-4); Hematocrit 36.2 % (37.0-47.0); Hemoglobin 11.6 g/dl (12.0-16.0); Imm Gran Abs Auto 0.07 X10*3/uL (0.00-0.03); Imm Gran Pct Auto 0.6 % (0.0-0.4); Lymphocytes Percent Auto 7.8 % (20-40); Mean Corpuscular Hemoglobin 29.6 pg (27.0-33.0); Mean Corpuscular Volume 92.3 fL (80.0-98.0); Mean Platelet Volume 9.7 fL (9.4-12.3); Monocytes Absolute Auto 1.3 X10*3/uL (0.1-1.2); Monocytes Percent Auto 10.4 % (2-11); Neutrophils Percent Auto 80.5 % (45-73); Platelet Count 253 X10*3/uL (160-400); Red Blood Count 3.92 X10*6/uL (4.20-5.50); Red Cell Distribution Width 13.3 % (11.0-16.0); White Blood Count 12.5 X10*3/uL (4.8-10.8)
[2022-09-04 09:15] LABS: D Dimer High Sensitivity 330 NG/ML
[2022-09-04 09:26] LABS: Alanine Aminotransferase 33 U/L (0-31); Albumin Level 3.9 g/dL (3.5-5.0); Alkaline Phosphatase 168 U/L (39-117); Anion Gap 17 (12-20); Aspartate Amino Transferase 20 U/L (5-31); Bilirubin Total 0.3 mg/dL (0.0-1.0); Blood Urea Nitrogen 18 mg/dL (9-16); Calcium 9.3 mg/dL (8.4-10.2); Carbon Dioxide 26 mmol/L (22-29); Chloride 100 mmol/L (96-108); Creatinine Clr Calc Pharmacy 105.1; Estimated Glomerular Filt Rate > 60; Glucose Random 146 mg/dL (60-115); Lipase 13 U/L (8-78); Magnesium 1.9 mg/dL (1.6-2.6); Potassium 4.4 mmol/L (3.3-5.1); Sodium 139 mmol/L (135-145)
[2022-09-04 09:27] LABS: COVID-19 Test Negative (Negative); IDNOW Serial# 16C4AD1C; Influenza A Negative (Negative); Influenza B2 Negative (Negative)
[2022-09-04 09:32] LABS: Troponin-I High Sensitivity 3.9 ng/L (<3.5-17.0)
[2022-09-04] MEDS: iohexoL 350 MG/ML 100 ML INFUS..BTL IV (09:54)
[2022-09-04 10:31] VITALS: BP 128/57; PULSE 76; RESP 16; O2SAT 95
[2022-09-04 11:44] VITALS: BP 124/62; PULSE 79; RESP 22; O2SAT 97
--- NOTE | 2022-09-04 11:46 | PC.NURSE ---
Pt alert and oriented. Respirations even and unlabored. Awaiting repeat lab work. Pt aware of plan.
[2022-09-04 11:54] LABS: Appearance Urine Clear; Color Urine Yellow; Glucose Urine UA Negative (Negative); Leukocyte Esterase Urine Small (1+) (Negative); Nitrite Urine Positive (Negative); UMIC TRIGGER UACC YES; Urine Blood Trace (Negative); Urine Ketones Negative (Negative); Urine Protein Trace mg/dL (Neg-Trace)
[2022-09-04 11:57] LABS: Bacteria Urine 2+ (None Seen); Hyaline Casts Urine 0-2 /LPF (0-2); Squamous Epithelial Cell Urine 0-2 /HPF (0-2); UACC Culture Trigger YES
[2022-09-04 12:23] LABS: Troponin-I High Sensitivity 4.1 ng/L (<3.5-17.0)
== END 2022-09-04 13:28 | disposition home or self-care (01) ==
PROVIDERS: Nurse Practitioner Family; Emergency Provider Emergency Medicine; PCP Internal Medicine
DX: R07.9 Chest pain, unspecified (principal); N39.0 Urinary tract infection, site not specified; R91.1 Solitary pulmonary nodule; Z20.822 Contact with and (suspected) exposure to COVID-19; F17.210 Nicotine dependence, cigarettes, uncomplicated; Z79.02 Long term (current) use of antithrombotics/antiplatelets; Z79.899 Other long term (current) drug therapy
CPT/HCPCS: 36415; 71046; 71275; 80053; 81001; 83690; 83735; 84484; 85025; 85379; 87086; 87088; 87186; 87502; 87635; 93005; 99284; Q9967

== ENCOUNTER 2023-04-05 17:19 | Emergency (ER) | payer MEDICARE, MEDICAID, SELFPAY ==
--- NOTE | ~2023-04-05 | XR_ITS ---
EXAMINATION: XR HIP, RIGHT CLINICAL INFORMATION: Right hip pain COMPARISON: None available. TECHNIQUE: Two views of the right hip. FINDINGS: Bones and soft tissues are normal. No fracture. Alignment is anatomic. Hip joint space is maintained. XR/XR hip RT w PEL1V IMPRESSION: Normal right hip.
[2023-04-05 17:36] VITALS: BP 129/76; PULSE 69; RESP 20; TEMP 36.9; O2SAT 96; BMI 38.7
--- NOTE | 2023-04-05 17:36 | ED_ITS ---
HPI - General Adult General Chief complaint: Extremity Problem Stated complaint: Hip pain/ Right leg pain Time Seen by Provider: 04/05/23 20:31 Source: patient Mode of arrival: ambulatory Limitations: no limitations History of Present Illness HPI narrative: Patient comes to the emergency room complaining of chronic right hip pain. Patient states that now she has been using her cane more often than usual. Denies any falls, no fever or chills, no erythema or swelling of the joint. Related Data Home Medications Medication Instructions Recorded Confirmed benztropine 1 mg tablet 1 mg PO DAILY 02/06/22 02/06/22 lorazepam 0.5 mg tablet 0.5 mg PO TID PRN Anxiety 02/06/22 02/06/22 omeprazole 20 mg capsule,delayed 20 mg PO DAILY 02/06/22 02/06/22 release sertraline 50 mg tablet 75 mg PO DAILY 02/06/22 02/06/22 simvastatin 20 mg tablet 20 mg PO BEDTIME 02/06/22 02/06/22 thiothixene 5 mg capsule 5 mg PO DAILY 02/06/22 02/06/22 trazodone 50 mg tablet 50 mg PO BEDTIME PRN Sleep 02/06/22 02/06/22 Previous Rx's Medication Instructions Recorded cefuroxime axetil 250 mg tablet 250 mg PO Q12H #14 tabs 09/04/22 oxycodone 5 mg tablet 5 mg PO BID PRN pain #7 tabs 04/05/23 Allergies Allergy/AdvReac Type Severity Reaction Status Date / Time amoxicillin [From [facility]UG[facility]] Allergy Intermediate RASH Verified 01/28/21 12:43 clavulanic acid Allergy Intermediate RASH Verified 01/28/21 12:43 [From AUGMENTIN] Review of Systems Review of Systems: Constitutional : No Weight loss, No Fever, No Chills, No Night Sweats, No Fatigue, No Malaise ENT/Mouth : No Hearing loss, No Ear Pain, No Nasal Congestion, No Sinus Pain, No Hoarseness, No sore throat, No Rhinorrhea, No Swallowing Difficulty Eyes: No Eye Pain, No Swelling, No Redness, No Foreign Body, No Discharge, No Vision Changes Cardiovascular : No Chest Pain, No SOB, No Dyspnea on Exertion, No Orthopnea, No Edema, No Palpitations Respiratory : No Cough, No Sputum, No Wheezing, No Smoke Exposure, No Dyspnea Gastrointestinal : No Nausea, No Vomiting, No Diarrhea, No Constipation, No abdominal Pain, No Hematochezia, No Melena Genitourinary : no irregular bleeding, No Dysuria, No Urinary Frequency, No Hematuria, No Urinary Incontinence, No Urgency, No Flank Pain, No Urinary Flow Changes, No Hesitancy Musculoskeletal : Complaining of right hip pain, No Myalgias, No Joint Swelling Skin : No Skin Lesions, No rash Neuro : No Weakness, No Numbness, No Paresthesias, No Loss of Consciousness, No Dizziness, No Headache Psych : No Anxiety/Panic, No Depression, No SI/HI/AH/VH, No Social Issues, Heme/Lymph: No Bruising, No Bleeding,No Lymphadenopathy Endocrine : No Polyuria, No Polydipsia, No Temperature Intolerance [facility] Past Medical History Surgical History S/P rotator cuff repair Social History Social History Alcohol intake: never Patient Tobacco Use Status: Current everyday Tobacco user Advance Directives: No Advance Directives Information Provided: No Physical Exam ED Vital Signs: Vital Signs - 24 hr 04/05/23 17:36 04/05/23 19:34 Temperature 98.5 F 98.1 F Pulse Rate 69 67 Respiratory Rate 20 16 Blood Pressure 129/76 128/54 L Pulse Oximetry 96 96 Oxygen Delivery Method Room Air Room Air BMI result Body Mass Index 38.7 Const Other: Appearance: Alert. Oriented X3. No acute distress. Eyes: Pupils equal, round and reactive to light. ENT: Pharynx normal. Neck: Normal inspection. Neck supple. No lymph nodes noted. No crepitus CVS: Normal heart rate and rhythm. Pulses normal. Normal S1 and S2 Respiratory: No respiratory distress. Breath sounds normal. No Wheezing. No rales Abdomen: Soft and nontender. No rigidity. No distention. Skin: Skin warm and dry. Normal skin color. Normal skin turgor. Extremities: No lower extremity edema. No Lacerations. No Rash Musculoskeletal: No deformity, no erythema or additional warmth to palpation, patient able to flex and extend the hip, passively there is no pain, actively patient complaining of pain. Neuro: Oriented X 3. No motor deficit. No sensory deficit. Moving all extremities. No slurred speech. CN 2 through 12 grossly intact Psych: calm, cooperative, normal affect Course Course Course Narrative: This is an RME: Additional HPI, ROS, PE not included below will be deferred to primary provider. This is a 63-year-old female, with a past medical history of diet-controlled diabetes, who presents emergency department with right hip pain x2 days. 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 She is unable to bear weight on her right leg for the last two days. VSS. In wheelchair, nonambulatory Plan: xray right hip and pelvis. Medical Decision Making Medical Decision Making MDM Narrative: -I discussed the physical exam with the patient, likely musculoskeletal pain. -my interpretation of x-ray of the right hip: No fracture, no dislocation, near normal joint space present -patient has been trying Tylenol and ibuprofen. Patient requesting for additional pain medications so she can go to work since her work is a major source of income for her -patient states that she has an appointment pending with Orthopedics Radiology Impression Discussion of test interpretation with radiology: I have reviewed the radiologist's reading. Radiologist Impression: FINDINGS: Bones and soft tissues are normal. No fracture. Alignment is anatomic. Hip joint space is maintained. XR/XR hip RT w PEL1V IMPRESSION: Normal right hip. Discharge Plan Discharge Clinical Impression: Chronic pain of right hip Patient Disposition: Home, Self-Care Instructions: Hip Pain (ED) Additional Instructions: Please follow-up with your primary care physician tomorrow. If you have any worsening or new symptoms, please return to the emergency room or call 911 Prescriptions: New oxycodone 5 mg tablet 5 mg PO BID PRN (Reason: pain) Qty: 7 0RF Rx Instructions: Partial Fill upon patient request. No Action lorazepam 0.5 mg Tablet 0.5 mg PO TID PRN (Reason: Anxiety) simvastatin 20 mg Tablet 20 mg PO BEDTIME benztropine 1 mg Tablet 1 mg PO DAILY trazodone 50 mg Tablet 50 mg PO BEDTIME PRN (Reason: Sleep) thiothixene 5 mg Capsule 5 mg PO DAILY omeprazole 20 mg Capsule,Delayed Release(Dr/Ec) 20 mg PO DAILY sertraline 50 mg Tablet 75 mg PO DAILY cefuroxime axetil 250 mg tablet 250 mg PO Q12H Qty: 14 0RF
[2023-04-05 19:34] VITALS: BP 128/54; PULSE 67; RESP 16; TEMP 36.7; O2SAT 96
[2023-04-05] MEDS: oxyCODONE HCl Immed Release 5 MG TABLET PO (20:54)
== END 2023-04-05 20:58 | disposition home or self-care (01) ==
PROVIDERS: Emergency Provider Emergency Medicine
DX: G89.29 Other chronic pain (principal); M25.551 Pain in right hip
CPT/HCPCS: 73502; 99283